=== PATIENT | female | born 1990 | race African-American/Black ===

== ENCOUNTER 2016-12-25 05:48 | Inpatient (IN) ==
[2016-12-25] MEDS ORDERED: BUTORPHANOL 2 MG/ML VIAL IV PRN (06:01)
[2016-12-25] MEDS ORDERED: ONDANSETRON 4 MG/2 ML VIAL IV PRN ×2 (06:01→19:10)
[2016-12-25] MEDS ORDERED: OXYTOCIN/LR 20 UNIT/1,000 ML BAG IV SCH (06:30)
[2016-12-25] MEDS: LACTATED RINGERS 1,000 ML IV SCH ×3 (06:36→15:01)
[2016-12-25 06:47] LABS: Basophils % 0.3 % (0.0-0.8); Eosinophils # 0.1 10*3/uL (0.0-0.87); Eosinophils % 1.1 % (0.00-10.9); Hematocrit 34.4 VOL% (35.7-47.0); Hemoglobin 11.7 GM/DL (12.0-16.0); Immature Granulocytes % 0.8 %; Lymphocytes # 2.4 10*3/uL (1.4-4.0); Lymphocytes % 19.4 % (21.3-54.2); Mean Corpuscular Hemoglobin 29 PG (27-34); Mean Corpuscular Volume 85.1 FL (87-102); Mean Platelet Volume 11.9 FL (9.6-12.0); Monocytes # 1.2 10*3/uL (0.11-0.8); Monocytes % 9.2 % (1.7-12.7); Neutrophils # 8.7 10*3/uL (1.4-7.4); Neutrophils % 69.2 % (38.7-73.9); Platelet Count 164 T/CUMM (130-400); Red Blood Count 4.04 MC/CUMM (3.8-5.5); Red Cell Distribution Width 13.9 % (9.3-17.3); White Blood Count 12.5 T/CUMM (4-12)
[2016-12-25] MEDS ORDERED: AMPICILLIN INJ 2,000 MG in SODIUM CHLORIDE 0.9% 100 ML IV SCH (07:30)
--- NOTE | 2016-12-25 08:48 | History and Physical Update ---
History and Physical Update - History and Physical H&P was reviewed, the patient examined and there: are no changes in the patients condition since last H&P was completed. - Dictation Physical: refer to scanned H&P - Physical Exam Mental Status: alert and oriented Heart: regular rate and rhythm Lung: clear to auscultation Abdomen: within normal limits Vitals: within normal limits (39 wks for induction. No complications. GBS+)
[2016-12-25] MEDS: AMPICILLIN INJ 1,000 MG in SODIUM CHLORIDE 0.9% 100 ML IV SCH ×2 (11:47→15:01)
[2016-12-25] MEDS ORDERED: fentaNYL 2 MCG/ROPIV 0.2% EPID 150 ML EPIDURAL SCH (12:33)
[2016-12-25] MEDS ORDERED: FAMOTIDINE 20 MG/2 ML VIAL IV ONE (12:33)
[2016-12-25] MEDS ORDERED: CITRIC ACID/SODIUM CITRATE 30 ML UDCUP PO ONE (12:33)
[2016-12-25] MEDS ORDERED: diphenhydrAMINE 50 MG/1 ML VIAL IV PRN (12:33)
[2016-12-25] MEDS ORDERED: hydrOXYzine HCL 25 MG/1 ML VIAL IM PRN (12:33)
[2016-12-25] MEDS ORDERED: ePHEDrine 50 MG/ML AMP IV PRN (12:33)
[2016-12-25] MEDS ORDERED: PROMETHAZINE 25 MG/1 ML VIAL IM PRN (12:33)
[2016-12-25 14:00] LABS: Apearance,Urine CLEAR (Clear); Bacteria,Urine Occasional /HPF (Few); Bilirubin,Urine Negative (Negative); Blood, Urine Negative (Negative); Glucose,Urine (UA) Negative (Negative); Ketones,Urine Negative (Negative); Mucus,Urine Occasional /LPF (Occasional); Nitrite,Urine Negative (Negative); Protein,Urine Negative; RBC,Urine 2 /HPF (0-4); Squamous Epithelial Cell,Urine Occasional /HPF (0-10); Urine Color Yellow (Yellow); Urine Specific Gravity 1.012 (1.001-1.035); Urine Urobilinogen < 2.0 EU/DL (0.2-1.0); WBC,Urine <1 /HPF (0-6)
[2016-12-25] MEDS ORDERED: LIDOCAINE 1% 50 ML VIAL ONE (18:31)
[2016-12-25] MEDS ORDERED: miSOPROStol 200 MCG TABLET ONE (18:31)
[2016-12-25] MEDS ORDERED: miSOPROStol 200 MCG TABLET RECTAL ONE (18:53)
[2016-12-25] MEDS ORDERED: HYDROCORTISONE 2.5% RECTAL CREAM 30 GM TUBE TOP PRN (19:10)
[2016-12-25] MEDS ORDERED: MEASLES/MUMPS/RUBELLA VACCINE 0.5 ML VIAL SUBCUT ONE (19:10)
[2016-12-25] MEDS ORDERED: DIPH/TET/ACEL PERT BOOSTER VACCINE 0.5 ML VIAL IM ONE (19:10)
[2016-12-25] MEDS ORDERED: ACETAMINOPHEN 325 MG TABLET PO PRN (19:10)
[2016-12-25] MEDS ORDERED: BENZOCAINE 20%/MENTHOL 0.5% SPRAY 56 GM CAN TOP PRN (19:10)
[2016-12-25] MEDS ORDERED: oxyCODONE/ACETAMINOPHEN 5-325 MG TABLET PO PRN ×2 (19:10)
[2016-12-25] MEDS ORDERED: LANOLIN 50% CREAM 0.3 OZ TUBE TOP PRN (19:10)
[2016-12-25] MEDS ORDERED: BISACODYL 10 MG SUPP RECTAL PRN (19:10)
[2016-12-25] MEDS ORDERED: OXYTOCIN/LR 20 UNIT/1,000 ML BAG IV ONE (19:10)
[2016-12-25] MEDS ORDERED: WITCH HAZEL PADS 100/JAR TOP PRN (19:10)
[2016-12-25] MEDS ORDERED: RHO(D) IMMUNE GLOBULIN 300 MCG SYRINGE IM ONE (19:10)
--- NOTE | 2016-12-25 19:18 | Operative Note ---
Date of procedure: 12/25/16 Pre-op diagnosis: 39 weeks for induction; GBS + Post-op diagnosis: same Procedure: Kiwi vacuum assisted vaginal delivery; Second degree perineal laceration with extension into capsule, repaired; Bilateral medial labial lacerations, repaired. Patient progressed to complete and pushing with labor epidural and Pitocin augmentation. Prolonged bradycardia and ineffective pushing with epidural so recommended vacuum assistance. Benefits, risks, complications of vacuum delivery were discussed with the patient in detail. She voiced understanding and wished to proceed. Kiwi vacuum was applied to the vertex through 1 uterine contraction. The was easily delivered with minimal traction. The infant was delivered without difficulty. Baby was bulb suctioned. The cord was doubly clamped and cut and the baby was placed on mother's belly. Cord blood was collected. The placenta was delivered intact. The second- degree perineal laceration with extension into the capsule was repaired with 2- 0 and 3-0 chromic sutures with good approximation and hemostasis. Bilateral medial labial lacerations were reapproximated with interrupted stitches of 3-0 chromic with good approximation and hemostasis.. . Fundus was noted to be firm. Pt tolerated this well. Estimated blood loss 500 mL. Patient was stable and the infant was stable. Anesthesia: epidural Surgeon / Physician: Janet Hawkins Estimated blood loss: other (500cc) Specimens: other (cord blood to lab; placenta to path) Condition: stable Disposition: PACU Results - Labs CBC & BMP: 12/25/16 06:29 Discharge Plan - Discharge Medications No Action Pediatric Multivitamin No.42 [Flintstones Complete Chew Tab] 1 tablet PO DAILY - Follow Up or Referral - Forms/Instructions
[2016-12-26] MEDS: DOCUSATE SODIUM 100 MG CAPSULE PO SCH ×3 (00:41→22:10)
[2016-12-26 06:47] LABS: Basophils % 0.2 % (0.0-0.8); Eosinophils % 0.2 % (0.00-10.9); Hematocrit 30.9 VOL% (35.7-47.0); Hemoglobin 10.5 GM/DL (12.0-16.0); Immature Granulocytes % 0.7 %; Immature Granulocytes Absolute 0.12 #; Lymphocytes % 11.6 % (21.3-54.2); Mean Corpuscular Hemoglobin 29 PG (27-34); Mean Corpuscular Volume 85.6 FL (87-102); Mean Platelet Volume 12.5 FL (9.6-12.0); Monocytes # 1.4 10*3/uL (0.11-0.8); Neutrophils # 13.4 10*3/uL (1.4-7.4); Neutrophils % 79.3 % (38.7-73.9); Platelet Count 143 T/CUMM (130-400); Red Blood Count 3.61 MC/CUMM (3.8-5.5); Red Cell Distribution Width 14.3 % (9.3-17.3)
--- NOTE | 2016-12-26 09:05 | OB/GYN Progress Note ---
Assessment and Plan (1) Perineal laceration with delivery, second degree Status: Acute Assessment and plan: Routine care. Current Visit: Yes [employer] - PN: Subj Interval history: PPD#1 Doing well. Exam [employer] - Constitutional Vitals: Vital Signs Temp 12/26/16 05:11 97.8 F 12/26/16 04:11 97.7 F 12/25/16 23:20 97.7 F 12/25/16 22:20 97.7 F 12/25/16 21:20 97.7 F 12/25/16 20:50 97.8 F 12/25/16 20:20 97.8 F 12/25/16 20:00 97.8 F General appearance: normal weight, no acute distress - Head Head exam: Present: normal inspection, normocephalic - Respiratory Respiratory exam: Present: clear to auscultation bilaterally - Cardiovascular Cardiovascular exam: Present: regular rate and rhythm - GI/Abdominal GI/Abdominal exam: Present: soft (fundus firm, nontender) - Extremities Exam Extremities exam: Present: normal inspection - Neurological Exam Neurological exam: Present: alert, oriented X3 - Psychiatric Psychiatric exam: Present: normal affect, normal mood - Skin Skin exam: Present: normal color, warm Results - Labs CBC & BMP: 12/26/16 05:58 Lab Results: I have reviewed the past 24 hour labs
[2016-12-26] MEDS: IBUPROFEN 800 MG TABLET PO PRN ×3 (09:07→22:10)
--- NOTE | 2016-12-27 06:51 | Anesthesia Post-Op ---
Anesthesia Post OP - Post Ansesthetic Evaluation Patient seen in post op: Yes Resp: within normal limits CV: within normal limits Mental: within normal limits Temp: within normal limits [id number]: within normal limits Nausea and Vomiting: within normal limits Pain: within normal limits
[2016-12-27 07:32] VITALS: BP 98/64
[2016-12-27] MEDS: IBUPROFEN 800 MG TABLET PO PRN (08:50)
[2016-12-27] MEDS: DOCUSATE SODIUM 100 MG CAPSULE PO SCH (08:52)
--- NOTE | 2016-12-27 18:26 | Pathology Report from [facility] ---
[facility] [place] ACCESSION # : [id number] PATIENT NAME : Clementina Warren ORDERING DR : KIM HARTMANN DO CLINICAL HX: Intrauterine at 39 weeks - Vaginal delivery POST-OP DX: Same SPECIMEN INFO: Placenta GROSS DESCRIPTION: Received fresh labeled with the patients name and consists of a 421 gram placenta which measures 20.0 x 15.0 x 2.5 cm. membranes are pink-higgins and translucent. The umbilical cord measures 19.5 cm, contains three vessels and is pericentrally inserted. The surface is blue-do and intact with scattered areas of subchorionic fibrin noted. The maternal surface is hemorrhagic and intact with no abnormalities appreciated upon sectioning. Sections submitted: A membranes and cord, B and maternal surfaces. DIAGNOSIS FOR CLEMENTINA WARREN: PLACENTA, 39 WEEKS GESTATIONAL AGE, VAGINAL DELIVERY : Mature placenta, 421 grams trimmed weight, less than 25th percentile for stated gestational age. Subchorionic fibrin. Tri -vascular umbilical cord, 19.5 cm in length. COLLECTED DATE: 12/26/2016 [facility] REPORT DATE: 12/27/2016 ELECTRONICALLY SIGNED BY: Marlee Aviles M.D. 12/27/2016 - 13:52:50 [email or web address]
== END 2016-12-27 14:00 | disposition home or self-care (01) | DRG 775 ==
LOC: N.LDOUT 05:48 → N.LD 05:57 → EDSTATUS 08:00 → N.OB 12-26 13:55
PROVIDERS: ADMIT Obstetrics & Gynecology; ATTEND Obstetrics & Gynecology